=== PATIENT | female | born 1935 | race Native Hawaiian/Other Pacific Islander ===

== ENCOUNTER 2022-05-03 11:23 | Outpatient (CLI) | payer OTHER | END 2022-05-03 18:57 | disposition home or self-care (01) | LOC: CT 11:23 | PROVIDERS: ATTEND Internal Medicine | DX: R63.0 Anorexia (principal); R11.0 Nausea; R10.84 Generalized abdominal pain; I63.9 Cerebral infarction, unspecified; R53.1 Weakness ==